=== PATIENT | male | born 1995 | race Caucasian/White ===

== ENCOUNTER 2017-06-26 19:33 | Emergency (ER) | payer OTHER ==
--- NOTE | 2017-06-26 20:48 | ED Physician Documentation ---
Skin Rash - HISTORIAN Historian: patient - HPI Stated Complaint: Lump to left ankle Chief Complaint: Skin Rash Additional Information: acute onset pain and itching while at friend's house Onset: days ago (1) Timing: still present Duration: worse (draining pus) Location: LLE Quality: itchy, painful Identified Cause?: No Where: neighbors Context: Medication Exposure: none Context: Food Exposure: none Context: Other Exposure: spider bite Further Comments: no - ROS CONST: denies: fever CVS/RESP: none EYES/ENT: none GI/: none MS/SKIN/LYMPH: leg pain NEURO/PSYCH: none - PAST HX Past History: hypertension, other (depression) Other History: none Surgeries/Procedures: No Immunizations: tetanus Allergies/Adverse Reactions: Allergies Allergy/AdvReac Type Severity Reaction Status Date / Time Penicillins Allergy Severe Anaphylaxis Verified 06/26/17 19:44 Home Medications: Ambulatory Orders Medication Instructions Recorded NK [NK] 11/19/12 - SOCIAL HX Smoking History: cigarettes Alcohol Use: none Drug Use: none - FAMILY HX Family History: none - VITAL SIGNS Vital Signs: Vital Signs Temp Pulse Resp BP Pulse Ox 98.2 F 95 H 18 118/68 98 06/26/17 19:35 06/26/17 21:05 06/26/17 21:05 06/26/17 21:05 06/26/17 21:05 - REVIEWED ASSESSMENTS Nursing Assessment Reviewed: Yes Vitals Reviewed: Yes Progress - Results/Orders Results/Orders: no testing ordered - Progress Progress: Pt. given Bactrim DS and Motrin 800 mg p.o. in ER Critical Care Note - Critical Care Note Total Time (mins): 0 ED Results Lab/Radiology - Lab Results Lab Results: none taken - Radiology Radiology Impressions: none taken - Orders Orders: ED Orders Category Date Time Status Diph,Pertuss(Acell),Tet Vac/Pf [Adacel] Med 06/26/17 20:53 Discontinued 0.5 ml IM .ONCE ONE Ibuprofen [Advil] Med 06/26/17 20:50 Discontinued 800 mg PO NOW ONE Sulfamethoxazole/Trimethoprim [Bactrim Ds] Med 06/26/17 20:51 Discontinued 1 each PO NOW ONE Skin Rash Physical Exam - EXAM General Appearance: alert, moderate distress Skin: erythema Location: other (posterior right leg achilles area) Character: asymmetric, erythematous Symptoms: warmth, tenderness Extremities: non-tender, nml ROM EENT: eyes nml inspection, lips nml, gums nml, pharynx nml Neck: trachea midline, no swelling, stiff neck Respiratory: no resp distress, chest non-tender CVS: reg. rate & rhythm, heart sounds nml Abdomen: non-tender, no organomegaly, nml bowel sounds Neuro/Psych: oriented x3, CN's nml as tested, motor nml, sensation nml, mood/ affect nml Discharge Clincal Impression: Spider bite Qualifiers: Encounter type: initial encounter Injury intent: accidental or unintentional Qualified Code(s): T63.301A - Toxic effect of unspecified spider venom, accidental (unintentional), initial encounter Cellulitis Qualifiers: Site of cellulitis: extremity Site of cellulitis of extremity: lower extremity Laterality: left Qualified Code(s): L03.116 - Cellulitis of left lower limb Referrals: Billy Sun MD [Primary Care Provider] - 2 Days Comments: Home to care of mother with scripts for Bactrim DS 1 p.o. BID #20 and Meloxicam 1 pill twice daily as needed for pain and swelling. Condition: Stable Disposition: HOME, SELF-CARE Decision to Admit: NO Decision Time: 20:48
[2017-06-26] MEDS ORDERED: IBUPROFEN 400 MG TABLET PO ONE (20:50)
[2017-06-26] MEDS ORDERED: SULFAMETHOXAZOLE/TRIMETHOPRIM 1 EACH TABLET PO ONE (20:51)
[2017-06-26] MEDS ORDERED: DIPH,PERTUSS(ACELL),TET VAC/PF 0.5 ML DISP.SYRIN IM ONE (20:53)
[2017-06-26 21:16] VITALS: BP 118/68
== END 2017-06-26 21:05 | disposition home or self-care (01) ==
LOC: ED 19:33
DX: L03.116 Cellulitis of left lower limb (principal); T63.301A Toxic effect of unspecified spider venom, accidental (unintentional), initial encounter
CPT/HCPCS: 90715; A9270; 96372

== ENCOUNTER 2018-01-09 18:04 | Emergency (ER) | payer OTHER ==
[2018-01-09] MEDS ORDERED: DICYCLOMINE HCL 20 MG TABLET PO ONE (18:18)
[2018-01-09] MEDS ORDERED: ONDANSETRON HCL 4 MG TAB.RAPDIS PO ONE (18:18)
[2018-01-09 18:43] LABS: MEAN CORPUSCULAR HEMOGLOBIN 26.4 pg (28.0-34.0)
[2018-01-09 18:44] LABS: BASOPHILS % 0.3 (0.0-1.5); EOSINOPHILS % 1.4 % (0.0-6.8); MONOCYTES % 3.8 % (0.0-11.0); NEUTROPHILS # 12.4 # k/uL (1.4-7.7)
[2018-01-09 19:07] LABS: eGFR (Non-African) > 60
[2018-01-09] MEDS ORDERED: AMOXICILLIN/POT 875/125 1 EACH PO ONE (19:15)
--- NOTE | 2018-01-09 19:17 | ED Physician Documentation ---
Abdominal Pain - HISTORIAN Historian: patient - HPI Stated Complaint: Abd pain, vomiting Chief Complaint: Abdominal Pain Additonal Information: Patient presents to ED with complaints of epigastric/RUQ pain since 0400 this morning. He states he vomited 11 times today. Patient states a couple of months ago he had similar symptoms and was evaluated in [place]. At that time he was told he had a bad gall bladder, sent home with medication and the pain went away. He did not follow up. Onset: hours (12) Duration: waxing, waning Timing: still present Context: denies: out of country travel Severity: moderate Quality: pain, aching, cramping Associated Symptoms: nausea. denies: fever, chills, coffee ground emesis Exacerbated by: nothing Relieved by: remaining still - ROS CONST: no problems GI/: denies: constipation CVS/RESP: denies: shortness of breath EYES/ENT: denies: problems with vision MS/SKIN/LYMPH: denies: joint pain, swollen glands NEURO/PSYCH: denies: headache, dizziness - SOCIAL HX Smoking History: non-smoker Alcohol Use: none Drug Use: none - FAMILY HX Family History: none - PAST HX Past History: none Other History: none Home Medications: Ambulatory Orders Medication Instructions Recorded Clindamycin HCl [Cleocin] 300 mg PO QID #40 capsule 01/09/18 Dicyclomine HCl [Bentyl] 20 mg PO Q6 #40 tablet 01/09/18 HYDROcodone /APAP 5/325 [Pingree 1 each PO Q6 PRN #15 tablet 01/09/18 5/325] Ondansetron [Zofran Odt] 4 mg PO TID PRN #30 tab.rapdis 01/09/18 Allergies/Adverse Reactions: Allergies Allergy/AdvReac Type Severity Reaction Status Date / Time Penicillins Allergy Severe Anaphylaxis Verified 01/09/18 18:23 - VITAL SIGNS Vital Signs: Vital Signs Temp Pulse Resp BP Pulse Ox 98.2 F 59 L 16 159/90 97 01/09/18 19:12 01/09/18 19:12 01/09/18 19:12 01/09/18 19:12 01/09/18 19:12 - REVIEWED ASSESSMENTS Nursing Assessment Reviewed: Yes Vitals Reviewed: Yes Progress - Progress Progress: 1924 Discussed lab results, elevated WBC with left shift. Informed patient of limitations of CT scanner here (he exceeds weight limit) and no Ultrasound until Friday. Patient states he will come back on Friday. ED Results Lab/Radiology - Lab Results Lab Results: Lab Results 01/09/18 01/09/18 18:42 18:42 WBC 14.70 K/ul H K/ul (4.00-12.00) RBC 5.11 M/ul M/ul (3.90-5.20) Hgb 13.5 g/dL g/dL (12.0-18.0) Hct 40.2 % % (37.0-53.0) MCV 79.0 fl L fl (80.0-100.0) MCH 26.4 pg L pg (28.0-34.0) MCHC 33.6 g/dL g/dL (30.0-36.0) RDW 14.2 % % (11.3-14.3) Plt Count 293 K/mm3 K/mm3 (130-400) Neut % (Auto) 839.0 % H % (39.0-79.0) Lymph % (Auto) 10.6 % L % (16.0-50.0) [place] % (Auto) 3.8 % % (0.0-11.0) Eos % (Auto) 1.4 % % (0.0-6.8) Baso % (Auto) 0.3 (0.0-1.5) Neut # (Auto) 12.4 # k/uL H # k/uL (1.4-7.7) Lymph # (Auto) 1.6 # k/uL # k/uL (0.6-4.0) [place] # (Auto) 0.6 # k/uL # k/uL (0.0-0.9) Eos # (Auto) 0.2 # k/uL # k/uL (0.0-0.6) Baso # (Auto) 0.0 # k/uL # k/uL (0.0-0.5) Sodium 143 mmol/L mmol/L (136-145) Potassium 4.0 mmol/L mmol/L (3.5-5.1) Chloride 103 mmol/L mmol/L (98-107) Carbon Dioxide 27 mmol/L mmol/L (22-30) BUN 19 mg/dL mg/dL (9-20) Creatinine 0.80 mg/dL mg/dL (0.66-1.25) Estimated Creat Clear 370 Est GFR ( Amer) > 60 (60 - ) Est GFR (Non-Af Amer) > 60 (60 - ) Glucose 117 mg/dL H mg/dL (74-106) Calcium 8.6 mg/dL mg/dL (8.4-10.2) Total Bilirubin 0.2 mg/dL mg/dL (0.2-1.3) AST 24 U/L U/L (15-46) ALT 39 U/L U/L (13-69) Alkaline Phosphatase 100 U/L U/L (38-126) Total Protein 8.1 g/dL g/dL (6.3-8.2) Albumin 4.1 g/dL g/dL (3.5-5.0) Lipase 30 U/L U/L (23-300) - Orders Orders: ED Orders Category Date Time Status Place IV Lock 1T Care 01/09/18 18:55 Active CBC/PLATELET/DIFF Routine Lab 01/09/18 18:42 Completed CMP Routine Lab 01/09/18 18:42 Completed LIPASE Stat Lab 01/09/18 18:42 Completed Amoxicillin/Potassium Clav [Augmentin 875Mg/125Mg] Med 01/09/18 19:15 Stop Req 1 each PO NOW ONE Dicyclomine HCl [Bentyl] Med 01/09/18 18:18 Discontinued 20 mg PO NOW ONE HYDROcodone /APAP 5/325 [Pingree 5/325] Med 01/09/18 19:22 Once 1 each PO NOW ONE Lidocaine 1% 5ml(IM or SUTURE) [Xylocaine] Med 01/09/18 19:31 Once 2.5 mg IVP NOW ONE Ondansetron HCl Rapdis [Zofran Odt] Med 01/09/18 18:18 Discontinued 4 mg PO NOW ONE cefTRIAXone SODIUM [Rocephin] Med 01/09/18 19:29 Discontinued 1 gm .ROUTE .STK-MED ONE cefTRIAXone SODIUM [Rocephin] 1 gm Med 01/09/18 19:23 Ordered 0.9 % Sodium Chloride [Sodium Chloride] 50 ml IV NOW Abdominal Pain Physical Exam - Physical Exam General Appearance: no acute distress, alert EENT: KEY NECK: normal inspection, supple RESPIRATORY: no resp distress, chest non-tender, breath sounds normal CVS: reg rate & rhythm, heart sounds normal ABDOMEN: soft (obese), tenderness (epigastric/RUQ) SKIN: warm/dry, normal color EXTREMITIES: non-tender, no edema NEURO: oriented X3, motor nml Vital Signs: Vital Signs Temp Pulse Resp BP Pulse Ox 98.2 F 59 L 16 159/90 97 01/09/18 19:12 01/09/18 19:12 01/09/18 19:12 01/09/18 19:12 01/09/18 19:12 Discharge Clincal Impression: Gall bladder disease Prescriptions: Clindamycin HCl [Cleocin] 300 mg PO QID #40 capsule Dicyclomine HCl [Bentyl] 20 mg PO Q6 #40 tablet HYDROcodone /APAP 5/325 [Pingree 5/325] 1 each PO Q6 PRN #15 tablet PRN Reason: Abdominal Pain Ondansetron [Zofran Odt] 4 mg PO TID PRN #30 tab.rapdis PRN Reason: Nausea / Vomiting Referrals: Primary Doctor,No [Primary Care Provider] - 2 Days Additional Instructions: 1. Take antibiotics as prescribed 2. Follow up on Friday for Ultrasound of gall bladder. 3. Return to the ED immediately if symptoms progress, fever >101.0 or new symptoms arise. 4. Do not take pain medication and drive or operate machinery. Comments: CT scan would be helpful in evaluating for gall stone/cholecystitis, however, patient exceeds the weight limit of the scanner. Ultrasound is only available on Friday. Patient agrees to return on Friday for ultrasound. Condition: Stable Disposition: 01 HOME, SELF-CARE Decision to Admit: NO Date of Decison to Admit: 01/09/18 Decision Time: 19:47
[2018-01-09] MEDS ORDERED: HYDROcodone /APAP 5/325 1 EACH TABLET PO ONE (19:22)
[2018-01-09] MEDS ORDERED: cefTRIAXone SODIUM 1 GM in 0.9 % SODIUM CHLORIDE(MINIBAG+ 50 ML IV ONE (19:23)
[2018-01-09] MEDS ORDERED: cefTRIAXone SODIUM 1 GM VIAL ONE (19:29)
[2018-01-09] MEDS ORDERED: LIDOCAINE HCL 1% PF 50MG/5ML AMP (IM/SUTURE/PAIN CLINIC) IVP ONE (19:31)
[2018-01-09 20:03] VITALS: BP 135/72
== END 2018-01-09 20:00 | disposition home or self-care (01) ==
LOC: SUPCPDRO 18:04 → ED 18:04
DX: K82.9 Disease of gallbladder, unspecified (principal)
CPT/HCPCS: 36415; 80053; 83690; 85025; 99283; A9270; J0696; S1016

== ENCOUNTER 2018-01-15 10:33 | Outpatient (CLI) | payer OTHER ==
--- NOTE | 2018-01-16 03:41 | Diagnostic Imaging Report ---
ELADIA MEADOWS [facility] [address] [facility].[address] [address] Report Submission Date: Jan 15, 2018 11:41:46 AM [employer] MACHINE Patient Study Name: VAUGHN CORCORAN Date: Jan 15, 2018 10:39:48 AM [employer] MACHINE Modality Type: US Gender: M Description: US RUQ : 89 Institution: [facility] Physician: ELADIA MEADOWS Examination: Ultrasound gallbladder History: Ruq pain n/v Findings: Sonographic evaluation of the right upper quadrant demonstrates the gallbladder with stones and possible polyps. Gallbladder wall measures 2.0 mm. Common bile duct measures up to 9.6 mm. No intrahepatic biliary dilation. Liver demonstrates increased echogenicity. No mass or cyst. Normal flow on color analysis. Normal portal vein Doppler waveform. Right kidney measures 10.5 cm in length. No cortical mass or cyst. No hydronephrosis. Pancreatic region without gross irregularity. Impression: Gallstones and possible polyps. No evidence for gallbladder wall thickening. Dilated common bile duct. Fatty liver. Electronically signed on Jan 15, 2018 11:41:46 AM POLE [employer] MACHINE by: Ihsan MERINO
== END 2018-01-15 10:35 ==
LOC: RAD 10:33
PROVIDERS: ATTEND Physician Assistant
DX: K80.80 Other cholelithiasis without obstruction (principal); K76.0 Fatty (change of) liver, not elsewhere classified; K83.8 Other specified diseases of biliary tract; R10.11 Right upper quadrant pain
CPT/HCPCS: 76705